=== PATIENT | male | born 1960 | race Caucasian/White ===

== ENCOUNTER 2019-09-05 10:25 | Day surgery (SDC) | payer OTHER ==
[2019-09-05] MEDS ORDERED: PROPOFOL 200 MG/20 ML VIAL ONE (11:27)
--- NOTE | 2019-09-07 21:41 | OP ---
DATE OF PROCEDURE: 09/05/2019 PREPROCEDURE DIAGNOSES: Positive Cologuard test per patient. Family history of polyps in a brother and mother. POSTPROCEDURE DIAGNOSES: 1. Normal ileocolonoscopy. 2. History of normal CBC recently. RECOMMENDATIONS: Consider repeat colonoscopy in 7 years regarding the patient's family history of polyps. ANESTHESIA: TIVA. PROCEDURE IN DETAIL: The patient was informed of the risks, benefits, and possible complications of endoscopy including perforation, reaction to medication and aspiration. Informed consent was obtained. The patient was brought to endoscopy suite, where he sedated in gradual fashion. Once he was comfortable, rectal exam was performed. The endoscope was inserted into the anal canal through the colon. Cecum was identified by ileocecal valve and appendiceal orifice. The scope was slowly removed. The prep was excellent. Forward and retroflexed views in the ascending colon and the rectum were normal. No polyps or masses were seen. There were some small internal hemorrhoids. The scope was removed. The patient was brought to the recovery room in stable condition. Job ID: [id number]
== END 2019-09-05 15:45 | disposition home or self-care (01) ==
LOC: SDC 10:25
PROVIDERS: ATTEND Internal Medicine Gastroenterology
PROC: 0DJD8ZZ Inspection of Lower Intestinal Tract, Via Natural or Artificial Opening Endoscopic (ICD-10-PCS; principal; 2019-09-05)
DX: R19.5 Other fecal abnormalities (principal); I10 Essential (primary) hypertension; Z79.899 Other long term (current) drug therapy; Z83.71 Family history of colonic polyps; Z86.010 Personal history of colon polyps; Z88.5 Allergy status to narcotic agent
CPT/HCPCS: J2704

== ENCOUNTER 2025-06-19 08:24 | Outpatient (CLI) | payer OTHER | END 2025-06-19 08:25 | disposition home or self-care (01) | LOC: BICULT 08:24 | PROVIDERS: ATTEND Family Medicine | DX: R79.89 Other specified abnormal findings of blood chemistry (principal); R60.0 Localized edema; R16.1 Splenomegaly, not elsewhere classified | CPT/HCPCS: 76705 ==